=== PATIENT | female | born 1990 | race Caucasian/White ===

== ENCOUNTER 2017-12-06 05:11 | Inpatient (IN) | payer OTHER ==
[2017-12-06] MEDS ORDERED: HYDROCODONE/APAP (5/325) TAB PO (06:30)
[2017-12-06] MEDS: DEXTROSE 5%-0.45% NACL 1,000 ML IV ×2 (06:46→17:54)
[2017-12-06] MEDS: HYDROCODONE/APAP (5/325) TAB PO ×4 (07:46→21:55)
[2017-12-06 09:12] LABS: ADD MAN DIFF? NO
[2017-12-06 09:22] LABS: WHITE BLOOD COUNT 6.7 10^3/ul (4.8-10.8)
[2017-12-06 09:22] LABS: BASOPHILS % 0.4 % (0.0-2.0); EOSINOPHILS # 0.2 10^3/ul (0.0-0.5); EOSINOPHILS % 2.2 % (0.0-7.0); HEMATOCRIT 39.9 % (37.0-47.0); HEMOGLOBIN 13.1 g/dl (12.0-16.0); LYMPHOCYTES # 2.4 10^3/ul (0.8-2.9); LYMPHOCYTES % 35.3 % (15.0-51.0); MEAN CORPUSCULAR HEMOGLOBIN 28.9 pg (29.0-33.0); MEAN CORPUSCULAR HGB CONC 32.8 g/dl (32.0-37.0); MEAN CORPUSCULAR VOLUME 88.1 fl (82.0-101.0); MEAN PLATELET VOLUME 9.7 fl (7.4-10.4); MONOCYTE # 0.6 10^3/ul (0.3-0.9); MONOCYTES % 9.4 % (0.0-11.0); NEUTROPHIL # 3.5 10^3/ul (1.6-7.5); NEUTROPHILS % 52.4 % (39.0-77.0); PLATELET COUNT 297 10^3/UL (140-415); RED BLOOD COUNT 4.53 10^6/ul (4.20-5.40); RED CELL DISTRIBUTION WIDTH 13.1 % (11.5-14.5)
[2017-12-06] MEDS: KETOROLAC 30 MG INJ IV ×2 (09:30→18:46)
[2017-12-06 09:46] LABS: ALANINE AMINOTRANSFERASE 19 IU/L (13-69); ALBUMIN/GLOBULIN RATIO 1.25; ALKALINE PHOSPHATASE 55 IU/L (42-121); ANION GAP 12 (8-16); ASPARTATE AMINO TRANSFERASE 17 IU/L (15-46); BILIRUBIN,INDIRECT 0.5 mg/dl (0-1.1); BILIRUBIN,TOTAL 0.5 mg/dl (0.2-1.3); BLOOD UREA NITROGEN 8 mg/dl (7-20); CALCIUM 9.1 mg/dl (8.4-10.2); CARBON DIOXIDE 28 mmol/L (21-31); CHLORIDE 103 mmol/L (97-110); CREATININE 0.69 mg/dl (0.44-1.00); GLUCOSE 99 mg/dl (70-220); MAGNESIUM 1.9 mg/dl (1.7-2.5); PHOSPHORUS 4.9 mg/dl (2.5-4.9); POTASSIUM 3.9 mmol/L (3.5-5.1); SODIUM 139 mmol/L (135-144); TOTAL PROTEIN 7.2 g/dl (6.1-8.1)
[2017-12-06] MEDS ORDERED: DOCUSATE SODIUM 100 MG CAP PO (10:00)
[2017-12-06] MEDS ORDERED: ALPRAZOLAM 1 MG TAB PO (10:00)
[2017-12-06 10:08] LABS: ADD UMIC YES; UR ASCORBIC ACID 20 mg/dL (NEGATIVE); UR BACTERIA FEW /HPF (NONE SEEN); UR BILIRUBIN (Dip) NEGATIVE (NEGATIVE); UR BLOOD (Dip) NEGATIVE (NEGATIVE); UR CLARITY SLIGHTLY CLOUDY (CLEAR); UR COLOR YELLOW (YELLOW); UR GLUCOSE (Dip) NEGATIVE (NEGATIVE); UR KETONES (Dip) 1+ mg/dL (NEGATIVE); UR LEUKOCYTE ESTERASE (Dip) 1+ Leu/ul (NEGATIVE); UR MUCUS FEW /HPF (NONE SEEN); UR NITRITE (Dip) NEGATIVE (NEGATIVE); UR RBC 4 /HPF (0-5); UR SPECIFIC GRAVITY (Dip) 1.024 (1.003-1.030); UR SQUAMOUS EPITHELIAL CELL FEW /HPF (FEW); UR TOTAL PROTEIN (Dip) NEGATIVE (NEGATIVE); UR UROBILINOGEN (Dip) 2+ mg/dL (NEGATIVE); UR WBC 16 /HPF (0-5)
[2017-12-06] MEDS: BACLOFEN 10 MG TAB PO ×3 (11:20→20:33)
[2017-12-06] MEDS: ONDANSETRON 4 MG INJ IV ×2 (16:22→21:48)
[2017-12-06] MEDS: CEFTRIAXONE 1 GM/50 ML (PMX) 50 ML IVPB (20:32)
[2017-12-07] MEDS: DEXTROSE 5%-0.45% NACL 1,000 ML IV ×3 (02:30→17:35)
[2017-12-07 05:06] LABS: ADD MAN DIFF? NO
[2017-12-07 05:13] LABS: WHITE BLOOD COUNT 5.8 10^3/ul (4.8-10.8)
[2017-12-07 05:13] LABS: HEMATOCRIT 39.3 % (37.0-47.0); HEMOGLOBIN 13.2 g/dl (12.0-16.0); MEAN CORPUSCULAR HEMOGLOBIN 29.9 pg (29.0-33.0); MEAN CORPUSCULAR HGB CONC 33.6 g/dl (32.0-37.0); MEAN CORPUSCULAR VOLUME 88.9 fl (82.0-101.0); RED BLOOD COUNT 4.42 10^6/ul (4.20-5.40)
[2017-12-07 05:14] LABS: BASOPHILS % 0.5 % (0.0-2.0); EOSINOPHILS # 0.2 10^3/ul (0.0-0.5); EOSINOPHILS % 3.3 % (0.0-7.0); LYMPHOCYTES # 2.5 10^3/ul (0.8-2.9); LYMPHOCYTES % 44.2 % (15.0-51.0); MEAN PLATELET VOLUME 9.7 fl (7.4-10.4); MONOCYTE # 0.5 10^3/ul (0.3-0.9); MONOCYTES % 8.9 % (0.0-11.0); NEUTROPHIL # 2.5 10^3/ul (1.6-7.5); NEUTROPHILS % 42.8 % (39.0-77.0); PLATELET COUNT 293 10^3/UL (140-415); RED CELL DISTRIBUTION WIDTH 13.1 % (11.5-14.5)
[2017-12-07 05:38] LABS: ALANINE AMINOTRANSFERASE 19 IU/L (13-69); ALBUMIN 3.6 g/dl (3.3-4.9); ALBUMIN/GLOBULIN RATIO 1.09; ALKALINE PHOSPHATASE 47 IU/L (42-121); ANION GAP 12 (8-16); ASPARTATE AMINO TRANSFERASE 16 IU/L (15-46); BILIRUBIN,INDIRECT 0.3 mg/dl (0-1.1); BILIRUBIN,TOTAL 0.3 mg/dl (0.2-1.3); BLOOD UREA NITROGEN 5 mg/dl (7-20); CALCIUM 8.8 mg/dl (8.4-10.2); CARBON DIOXIDE 26 mmol/L (21-31); CHLORIDE 107 mmol/L (97-110); CREATININE 0.73 mg/dl (0.44-1.00); GLUCOSE 110 mg/dl (70-220); POTASSIUM 3.6 mmol/L (3.5-5.1); SODIUM 141 mmol/L (135-144); TOTAL PROTEIN 6.9 g/dl (6.1-8.1)
[2017-12-07] MEDS: PANTOPRAZOLE (EC) 40 MG TAB PO (06:49)
[2017-12-07] MEDS: CITALOPRAM 20 MG TAB PO (08:37)
[2017-12-07] MEDS: BACLOFEN 10 MG TAB PO ×3 (08:37→20:21)
[2017-12-07] MEDS: HYDROCODONE/APAP (5/325) TAB PO (08:40)
[2017-12-07] MEDS: POTASSIUM CHLORIDE (SR) 20 MEQ TAB PO (09:24)
[2017-12-07] MEDS: KETOROLAC 30 MG INJ IV ×2 (10:03→20:20)
[2017-12-07] MEDS: OXYCODONE/ACETAMINOPHEN (10/325) TAB PO ×2 (12:40→17:35)
[2017-12-07] MEDS: HYOSCYAMINE 0.125 MG TAB PO ×3 (14:00→22:44)
[2017-12-07] MEDS ORDERED: METOCLOPRAMIDE 10 MG INJ IV (14:00)
[2017-12-07] MEDS: METOCLOPRAMIDE 10 MG INJ IV ×2 (14:11→22:36)
[2017-12-07] MEDS: OXYCODONE/ACETAMINOPHEN (5/325) TAB PO (20:20)
[2017-12-07] MEDS: CEFTRIAXONE 1 GM/50 ML (PMX) 50 ML IVPB (20:21)
[2017-12-08] MEDS: DEXTROSE 5%-0.45% NACL 1,000 ML IV ×2 (05:53→17:31)
[2017-12-08] MEDS: METOCLOPRAMIDE 10 MG INJ IV ×3 (05:56→22:00)
[2017-12-08] MEDS: HYOSCYAMINE 0.125 MG TAB PO ×3 (05:57→17:31)
[2017-12-08] MEDS: PANTOPRAZOLE (EC) 40 MG TAB PO (05:57)
[2017-12-08] MEDS: BACLOFEN 10 MG TAB PO ×3 (10:07→20:26)
[2017-12-08] MEDS: KETOROLAC 30 MG INJ IV (10:07)
[2017-12-08] MEDS: CITALOPRAM 20 MG TAB PO (10:07)
[2017-12-08] MEDS: OXYCODONE/ACETAMINOPHEN (10/325) TAB PO (14:55)
[2017-12-08] MEDS: CEFTRIAXONE 1 GM/50 ML (PMX) 50 ML IVPB (20:26)
[2017-12-08] MEDS: DOCUSATE SODIUM 100 MG CAP PO (20:26)
[2017-12-08] MEDS: OXYCODONE/ACETAMINOPHEN (5/325) TAB PO (20:27)
[2017-12-09] MEDS: HYOSCYAMINE 0.125 MG TAB PO ×4 (00:01→17:46)
[2017-12-09] MEDS: DEXTROSE 5%-0.45% NACL 1,000 ML IV ×2 (04:30→06:19)
[2017-12-09 05:11] LABS: ADD MAN DIFF? NO
[2017-12-09 05:14] LABS: WHITE BLOOD COUNT 6.6 10^3/ul (4.8-10.8)
[2017-12-09 05:14] LABS: BASOPHILS % 0.3 % (0.0-2.0); EOSINOPHILS # 0.2 10^3/ul (0.0-0.5); EOSINOPHILS % 2.9 % (0.0-7.0); HEMATOCRIT 38.5 % (37.0-47.0); HEMOGLOBIN 12.8 g/dl (12.0-16.0); LYMPHOCYTES # 2.6 10^3/ul (0.8-2.9); LYMPHOCYTES % 39.3 % (15.0-51.0); MEAN CORPUSCULAR HEMOGLOBIN 29.2 pg (29.0-33.0); MEAN CORPUSCULAR HGB CONC 33.2 g/dl (32.0-37.0); MEAN CORPUSCULAR VOLUME 87.9 fl (82.0-101.0); MEAN PLATELET VOLUME 9.9 fl (7.4-10.4); MONOCYTE # 0.4 10^3/ul (0.3-0.9); MONOCYTES % 6.4 % (0.0-11.0); NEUTROPHIL # 3.4 10^3/ul (1.6-7.5); NEUTROPHILS % 50.8 % (39.0-77.0); PLATELET COUNT 281 10^3/UL (140-415); RED BLOOD COUNT 4.38 10^6/ul (4.20-5.40); RED CELL DISTRIBUTION WIDTH 12.9 % (11.5-14.5)
[2017-12-09 06:13] LABS: ALANINE AMINOTRANSFERASE 18 IU/L (13-69); ALBUMIN 3.6 g/dl (3.3-4.9); ALBUMIN/GLOBULIN RATIO 1.16; ALKALINE PHOSPHATASE 50 IU/L (42-121); ANION GAP 11 (8-16); ASPARTATE AMINO TRANSFERASE 36 IU/L (15-46); BILIRUBIN,INDIRECT 0.4 mg/dl (0-1.1); BILIRUBIN,TOTAL 0.4 mg/dl (0.2-1.3); BLOOD UREA NITROGEN 4 mg/dl (7-20); CALCIUM 8.8 mg/dl (8.4-10.2); CARBON DIOXIDE 24 mmol/L (21-31); CHLORIDE 108 mmol/L (97-110); CREATININE 0.67 mg/dl (0.44-1.00); GLUCOSE 93 mg/dl (70-220); POTASSIUM 3.4 mmol/L (3.5-5.1); SODIUM 140 mmol/L (135-144); TOTAL PROTEIN 6.7 g/dl (6.1-8.1)
[2017-12-09] MEDS: METOCLOPRAMIDE 10 MG INJ IV ×2 (06:15→14:44)
[2017-12-09] MEDS: PANTOPRAZOLE (EC) 40 MG TAB PO (06:15)
[2017-12-09] MEDS: BACLOFEN 10 MG TAB PO ×2 (08:22→12:49)
[2017-12-09] MEDS: DOCUSATE SODIUM 100 MG CAP PO (08:22)
[2017-12-09] MEDS: CITALOPRAM 20 MG TAB PO (08:22)
[2017-12-09] MEDS: ONDANSETRON 4 MG INJ IV (08:58)
[2017-12-09] MEDS: POTASSIUM CHLORIDE (SR) 20 MEQ TAB PO (12:49)
== END 2017-12-09 19:50 | disposition home or self-care (01) | DRG 690 ==
LOC: MS3 05:11 → MS1 17:30
DX: N39.0 Urinary tract infection, site not specified (principal); K21.9 Gastro-esophageal reflux disease without esophagitis; F41.9 Anxiety disorder, unspecified; F32.9 Major depressive disorder, single episode, unspecified; N83.201 Unspecified ovarian cyst, right side
CPT/HCPCS: 74181; 80053; 81001; 83735; 84100; 85025; 87086

== ENCOUNTER 2017-12-25 17:45 | Emergency (ER) | payer OTHER ==
[2017-12-25 19:35] LABS: ADD MAN DIFF? NO
[2017-12-25] MEDS: ONDANSETRON 4 MG INJ IM (19:35)
[2017-12-25] MEDS: traMADol 50 MG TAB PO (19:35)
[2017-12-25 19:37] LABS: WHITE BLOOD COUNT 11.2 10^3/ul (4.8-10.8)
[2017-12-25 19:37] LABS: BASOPHILS % 0.1 % (0.0-2.0); EOSINOPHILS % 0.1 % (0.0-7.0); HEMATOCRIT 38.3 % (37.0-47.0); HEMOGLOBIN 13.1 g/dl (12.0-16.0); LYMPHOCYTES % 9.2 % (15.0-51.0); MEAN CORPUSCULAR HEMOGLOBIN 29.8 pg (29.0-33.0); MEAN CORPUSCULAR HGB CONC 34.2 g/dl (32.0-37.0); MEAN CORPUSCULAR VOLUME 87.2 fl (82.0-101.0); MEAN PLATELET VOLUME 9.8 fl (7.4-10.4); MONOCYTE # 0.6 10^3/ul (0.3-0.9); MONOCYTES % 5.3 % (0.0-11.0); NEUTROPHIL # 9.5 10^3/ul (1.6-7.5); PLATELET COUNT 243 10^3/UL (140-415); RED BLOOD COUNT 4.39 10^6/ul (4.20-5.40); RED CELL DISTRIBUTION WIDTH 13.1 % (11.5-14.5)
[2017-12-25 19:46] LABS: ADD UMIC NO; UR ASCORBIC ACID 40 mg/dL (NEGATIVE); UR BILIRUBIN (Dip) NEGATIVE (NEGATIVE); UR BLOOD (Dip) NEGATIVE (NEGATIVE); UR CLARITY CLEAR (CLEAR); UR COLOR YELLOW (YELLOW); UR GLUCOSE (Dip) NEGATIVE (NEGATIVE); UR KETONES (Dip) 1+ mg/dL (NEGATIVE); UR LEUKOCYTE ESTERASE (Dip) NEGATIVE Leu/ul (NEGATIVE); UR NITRITE (Dip) NEGATIVE (NEGATIVE); UR SPECIFIC GRAVITY (Dip) 1.021 (1.003-1.030); UR TOTAL PROTEIN (Dip) NEGATIVE (NEGATIVE); UR UROBILINOGEN (Dip) 1+ mg/dL (NEGATIVE)
[2017-12-25 20:12] LABS: ANION GAP 18 (8-16); BILIRUBIN,TOTAL 0.1 mg/dl (0.2-1.3)
[2017-12-25 20:13] LABS: ALANINE AMINOTRANSFERASE 23 IU/L (13-69); ALBUMIN 4.3 g/dl (3.3-4.9); ALKALINE PHOSPHATASE 74 IU/L (42-121); ASPARTATE AMINO TRANSFERASE 15 IU/L (15-46); BILIRUBIN,INDIRECT 0.1 mg/dl (0-1.1); BLOOD UREA NITROGEN 12 mg/dl (7-20); CALCIUM 9.5 mg/dl (8.4-10.2); CARBON DIOXIDE 24 mmol/L (21-31); CHLORIDE 107 mmol/L (97-110); CREATININE 0.65 mg/dl (0.44-1.00); GLUCOSE 112 mg/dl (70-220); LIPASE 59 U/L (23-300); POTASSIUM 4.2 mmol/L (3.5-5.1); SODIUM 145 mmol/L (135-144); TOTAL PROTEIN 7.6 g/dl (6.1-8.1)
== END 2017-12-25 21:38 | disposition home or self-care (01) ==
LOC: FTE 21:38
DX: R10.31 Right lower quadrant pain (principal); R10.84 Generalized abdominal pain; R10.32 Left lower quadrant pain; G89.29 Other chronic pain; R11.2 Nausea with vomiting, unspecified
CPT/HCPCS: 36415; 80053; 81003; 81025; 83690; 85025; 96372; 99284-25